=== PATIENT | male | born 1980 | race Caucasian/White ===

== ENCOUNTER 2018-07-21 12:32 | Inpatient (IN) | payer OTHER ==
[~2018-07-21] VITALS: Ht 175.3 cm; Wt 76.7 kg
[~2018-07-21 12:32] MED LIST: ceFAZolin 2GM PREMIX 2 GM/50 ML BAG IV ONE
--- NOTE | 2018-07-21 13:18 | RAD ---
HUMERUS RIGHT History: PT STATES HE WAS ARM WRESTLING AROUND 1030 THIS AM AND FELT A SNAP. PAIN AND SWELLING TO RT HUMERUS. No prior for comparison There is an oblique fracture of the distal shaft of the humerus. Fracture is mildly comminuted with small adjacent fragments. Very mild posterior and lateral displacement of the distal fragment and very mild posterolateral angulation. The elbow joint is not well profiled. IMPRESSION: Mildly displaced comminuted fracture of the distal humerus. Electronically signed by: Osmel Frank MD (07/21/2018 1:16 PM) [facility]
[2018-07-21] MEDS ORDERED: fentaNYL PF VIAL 100 MCG/2 ML VIAL IV ONE (13:30)
--- NOTE | 2018-07-21 14:09 | PHYS DOC ---
Past Medical History Past Medical History: No Pertinent History Past Surgical History: No Surgical History Alcohol Use: None Drug Use: None Adult General Chief Complaint Chief Complaint: ELBOW PROBLEM HPI HPI Patient is a 38 year old M who presents with R arm pain. He was arm wrestling, he currently resides in [facility] facility. He felt his arm snap. He denies other injury. Review of Systems Review of Systems Constitutional: Denies fever or chills Eyes: Denies change in visual acuity, redness, or eye pain HENT: Denies nasal congestion or sore throat Respiratory: Denies cough or shortness of breath Cardiovascular: Denies CP GI: Denies abdominal pain, nausea, vomiting, bloody stools or diarrhea : Denies dysuria or hematuria Musculoskeletal: Denies back pain or joint pain Integument: Denies rash or skin lesions Neurologic: Denies headache, focal weakness or sensory changes Endocrine: Denies polyuria or polydipsia All other systems were reviewed and found to be within normal limits, except as documented in this note. Current Medications Current Medications Current Medications Medications (Trade) Dose Ordered Sig/Nicole Start Time Stop Time Status Last Admin Dose Admin Fentanyl Citrate (Fentanyl 2ml Vial) 50 mcg 1X ONCE 07/21/18 13:30 07/21/18 13:31 DC Allergies Allergies Allergies Coded Allergies Type Severity Reaction Last Updated Verified No Known Drug Allergies 07/21/18 No Physical Exam Physical Exam Constitutional: Well developed, well nourished, no acute distress, non-toxic appearance. HENT: Normocephalic, atraumatic, bilateral external ears normal, oropharynx moist, no oral exudates, nose normal. Eyes: PERRLA, EOMI, conjunctiva normal, no discharge. Neck: Normal range of motion, no tenderness, supple, no stridor. Cardiovascular:Heart rate regular rhythm, no murmur Lungs & Thorax: Bilateral breath sounds clear to auscultation Abdomen: Bowel sounds normal, soft, no tenderness, no masses, no pulsatile masses. Skin: Warm, dry, no erythema, no rash. Back: No tenderness, no CVA tenderness. Extremities: R distal upper arm deformity, 2+ radial pulse, strength intact in wrist and hand, sensation intact Neurologic: Alert and oriented X 3, normal motor function, normal sensory function, no focal deficits noted. Psychologic: Affect normal, judgement normal, mood normal. Current Patient Data Vital Signs Vital Signs Date Time Temp Pulse Resp B/P (MAP) Pulse Ox O2 Delivery O2 Flow Rate FiO2 07/21/18 12:45 98.6 64 18 137/82 (100) 99 Room Air 98.6 EKG EKG [] Radiology/Procedures Radiology/Procedures [] Course & Med Decision Making Course & Med Decision Making Pertinent Labs and Imaging studies reviewed. (See chart for details) 38 y/o M with no pmh presents for right arm pain and deformity. Xray shows R distal humerus fx. Discussed with Dr. Snyder who will admit pt and repair in OR. Dragon Disclaimer Dragon Disclaimer This electronic medical record was generated, in whole or in part, using a voice recognition dictation system. Departure Departure Impression: Primary Impression: Humerus distal fracture Disposition: ADMITTED INPATIENT Admitting Physician: Other Condition: GOOD Referrals: UNKNOWN PCP NAME (PCP) SHERLYN FERGUSON MD Jul 21, 2018 14:08
--- NOTE | 2018-07-21 18:03 | NUR ---
Patient arrived to 4N at 1802. Prior to his arrival, woman called who said she was his . Said that someone from the ED had told her to call me. Per protocol of patient being confidential, I told her I do not have a patient here at this time, by that name. No orders, but Dr. Snyder on floor, ok for patient to have dinner. He will place orders later.
--- NOTE | 2018-07-21 18:52 | PDOC1 ---
History and Physical Date of Admission Date of Admission DATE: 07/21/18 TIME: 18:44 Identification/Chief Complaint Chief Complaint right arm fracture Source Source: Chart review, Patient History of Present Illness History of Present Illness 38 year old right handed man who sustained a right arm fracture while arm wrestling today at [facility]. He is due to be released in 10 days. He normally works doing framing and tera. Past Medical History Past Medical History denies Past Surgical History Past Surgical History none Family History Family History father . Denies significant family illnesses. Social History Smoke: No Current Problem List Problem List Problems Medical Problems: (1) Humerus distal fracture Status: Acute Current Medications Current Medications Current Medications Fentanyl Citrate (Fentanyl 2ml Vial) 50 mcg 1X ONCE IV Last administered on 07/21/18at 14:01; Start 07/21/18 at 13:30; Stop 07/21/18 at 13:31; Status DC Allergies Allergies: Coded Allergies: No Known Drug Allergies (Unverified , 07/21/18) ROS General: No: Chills, Night Sweats Eyes: No Decreased vision, No Double vision HEENT: No: Heacaches Hematological and Lymphatic: No: Bleeding Problems, Blood Clots Respiratory: No: Cough, Pleuritic Pain, Shortness of breath, SOB with excertion Cardiovascular: No Chest Pain Gastrointestinal: No Nausea, No Vomiting, No Diarrhea, No Constipation Genitourinary: No Dysuria, No Hematuria Musculoskeletal: Yes Pain In: (right arm only, radiated to just below elbow. Denies shoulder, wrist, hand pain or dysfunction) Neurological: No Behavorial Changes, No Bowel/Bladder ControlChng Physical Exam General: Alert, Cooperative HEENT: Atraumatic Heart: RRR Abdomen: Soft Extremities: No clubbing, No cyanosis, No edema, Normal pulses, Other (swelling and tenderness right distal humerus. Skin intact over fracture. Distal NVI.) Skin: No breakdown, No significant lesion Neuro: Normal tone, Sensation intact Vitals Vitals Vital Signs Date Time Temp Pulse Resp B/P (MAP) Pulse Ox O2 Delivery O2 Flow Rate FiO2 07/21/18 17:30 76 16 136/72 (93) 99 Room Air 07/21/18 12:45 98.6 98.6 Images Images displaced extra-articular distal humeral shaft fracture, almost metaphyseal. spiral fracture with displacement. Report reviewed, images independently reviewed. [facility] [address] [place] [address] IMAGING REPORT Signed PATIENT: MITCH MEYERS ACCOUNT: [id number] : 1980 LOCATION: ER AGE: 38 SEX: M EXAM STATUS: REG ER ORD. PHYSICIAN: SHERLYN FERGUSON MD REASON: arm wrestling, arm snapped, ?biceps tendonr upture vs fx PROCEDURE: HUMERUS RIGHT HUMERUS RIGHT History: PT STATES HE WAS ARM WRESTLING AROUND 1030 THIS AM AND FELT A SNAP. PAIN AND SWELLING TO RT HUMERUS. No prior for comparison There is an oblique fracture of the distal shaft of the humerus. Fracture is mildly comminuted with small adjacent fragments. Very mild posterior and lateral displacement of the distal fragment and very mild posterolateral angulation. The elbow joint is not well profiled. IMPRESSION: Mildly displaced comminuted fracture of the distal humerus. Electronically signed by: Osmel Frank MD (07/21/2018 1:16 PM) [facility] VTE Prophylaxis Ordered VTE Prophylaxis Devices: Yes VTE Pharmacological Prophylaxi: No Assessment/Plan Assessment/Plan Closed displaced distal humeral shaft nearly metaphyseal fracture in a laborer salvage. I discussed operative vs nonoperative treatment, but recommend surgery. We discussed potential risks such as bleeding, scarring, infection, nerve injury, malunion or nonunion, need for further surgery, need for hardware removal or other potential surgical or anesthetic complications.All of his questions about surgery were answered and he desires to proceed. PAULA KATZ MD Jul 21, 2018 18:52
[2018-07-21 19:00] VITALS: BP 125/72
[2018-07-21] MEDS ORDERED: MAGNESIUM HYDROXIDE 2,400 MG/30 ML ORAL.SUSP. PO PRN (19:30)
[2018-07-21] MEDS ORDERED: ZOLPIDEM 5 MG TABLET. PO PRN (19:30)
[2018-07-21] MEDS ORDERED: BISACODYL 10 MG SUPP.RECT. PR PRN (19:30)
[2018-07-21] MEDS ORDERED: DEXTROSE 50% 25 GM / 50ML DISP.SYRIN. IV PRN (19:30)
[2018-07-21] MEDS ORDERED: oxyCODONE IR 5 MG TABLET PO PRN ×2 (19:30)
[2018-07-21] MEDS ORDERED: 0.9 % SODIUM CHLORIDE 10 ML DISP.SYRIN. IV PRN (19:30)
[2018-07-21] MEDS ORDERED: ONDANSETRON PF 4 MG/2 ML VIAL. IV PRN (19:30)
[2018-07-21] MEDS: MORPHINE SULFATE 2 MG/ML VIAL. IV PRN (19:48)
[2018-07-21] MEDS: DOCUSATE SODIUM 100 MG CAPSULE. PO SCH (21:00)
[2018-07-21] MEDS: ACETAMINOPHEN 500 MG TABLET PO SCH (21:01)
[2018-07-21 21:27] LABS: BASO # 0.1 x10^3/uL (0.0-0.2); BASO % 1 % (0-3); EOS # 0.1 x10^3/uL (0.0-0.7); EOS % 1 % (0-3); HEMATOCRIT 45.1 % (39.0-53.0); HEMOGLOBIN 14.9 g/dL (13.0-17.5); LYMPH # 2.4 x10^3/uL (1.0-4.8); LYMPH % 21 % (24-48); MEAN CORPUSCULAR HEMOGLOBIN 30 pg (25-35); MEAN CORPUSCULAR HGB CONC 33 g/dL (31-37); MEAN CORPUSCULAR VOLUME 91 fL (79-100); MONO # 0.8 x10^3/uL (0.0-1.1); MONO % 7 % (0-9); NEUT # 7.8 x10^3uL (1.8-7.7); NEUT % 70 % (31-73); PLATELET COUNT 258 x10^3/uL (140-400); RED BLOOD COUNT 4.96 x10^6/uL (4.30-5.70); RED CELL DISTRIBUTION WIDTH 13.9 % (11.5-14.5); WHITE BLOOD COUNT 11.2 x10^3/uL (4.0-11.0)
[2018-07-21 21:38] LABS: CALCIUM 9.1 mg/dL (8.5-10.1); CREATININE 1.2 mg/dL (0.7-1.3); GFR 68.1; POTASSIUM 3.9 mmol/L (3.5-5.1)
[2018-07-21 23:00] VITALS: BP 156/60
[2018-07-22] VITALS (9 sets, daily range): BP systolic 107–127; BP diastolic 48–81
[2018-07-22] MEDS: MORPHINE SULFATE 2 MG/ML VIAL. IV PRN ×3 (01:43→07:32)
[2018-07-22] MEDS: fentaNYL PF VIAL 100 MCG/2 ML VIAL IV PRN ×7 (03:42→18:23)
[2018-07-22] MEDS: DOCUSATE SODIUM 100 MG CAPSULE. PO SCH ×2 (09:00→20:57)
[2018-07-22] MEDS: ACETAMINOPHEN 500 MG TABLET PO SCH ×3 (09:00→20:57)
[2018-07-22] MEDS ORDERED: IV RINGERS,LACTATED 1000ML 1,000 ML IV SCH (10:40)
[2018-07-22] MEDS ORDERED: fentaNYL PF VIAL 100 MCG/2 ML VIAL IV PRN ×2 (10:45→18:30)
[2018-07-22] MEDS ORDERED: ONDANSETRON PF 4 MG/2 ML VIAL. IV PRN ×2 (10:45→18:30)
[2018-07-22] MEDS ORDERED: MORPHINE SULFATE 2 MG/ML VIAL. IV PRN ×2 (10:45→18:30)
[2018-07-22] MEDS ORDERED: HYDROmorphone 2 MG/ML VIAL IV PRN (10:45)
[2018-07-22] MEDS ORDERED: LIDOCAINE 1% PF 2 ML VIAL. ID PRN (10:45)
[2018-07-22] MEDS ORDERED: PROCHLORPERAZINE 10 MG/2 ML VIAL. IV PRN (10:45)
[2018-07-22] MEDS ORDERED: ONDANSETRON PF 4 MG/2 ML VIAL. ONE ×2 (14:04→15:16)
[2018-07-22] MEDS ORDERED: PROPOFOL 20 ML IV ONE (14:04)
[2018-07-22] MEDS ORDERED: LIDOCAINE 2% PF 5 ML VIAL. ONE (14:04)
[2018-07-22] MEDS ORDERED: BUPIVACAINE-EPI 0.25%-1:200000 MPF 30 ML VIAL. ONE (14:33)
[2018-07-22] MEDS ORDERED: fentaNYL PF VIAL 100 MCG/2 ML VIAL ONE ×3 (15:16→18:09)
[2018-07-22] MEDS ORDERED: MIDAZOLAM HCL/PF 2 MG/2 ML VIAL. ONE (15:17)
[2018-07-22] MEDS ORDERED: GLYCOPYRROLATE 1 MG/5 ML VIAL. ONE (16:05)
[2018-07-22] MEDS ORDERED: KETOROLAC 30 MG/ML INJ FOR OR. INJ ONE (17:08)
--- NOTE | 2018-07-22 18:25 | PDOC4 ---
Operative Note Operative Note Date of Procedure: July 22, 2018 Pre-Op Diagnosis: Displaced spiral fracture of shaft of humerus, right arm, initial encounter for closed fracture S42.341A Post-Op Diagnosis: Same Procedure: Open treatment of humeral shaft fracture with plate/screws, CPT 11493 Surgeon: Paula Snyder MD Anesthesia: Tender Labor: RIANA Castaneda EBL: 200 mL Specimens Obtained: none Complications: none Drains: none Tourniquet time: 8 minutes Indications for Procedure: The patient is a 38-year-old right-handed man with a spiral fracture of the right distal humeral shaft which is displaced and unstable. The patient and I discussed the risks, benefits and alternatives of surgery. I recommended internal fixation. We discussed the potential risks of radial nerve injury, numbness, weakness, malunion or nonunion, need for further surgery, bleeding, scarring, infection, or other potential surgical or anesthetic complications. We discussed possible nonoperative treatment but I do recommend surgery for this fracture and he agrees. He stated understanding of the risks benefits and alternatives. A written consent was obtained. Procedure in Detail: The patient was identified in the preoperative holding are a. The correct right upper extremity was marked by me. The patient was taken to the operating room where general anesthesia was used. The patient was positioned supine on the operating table. Preoperative antibiotics were given intravenously. A timeout procedure was performed. The limb was prepared in sterile fashion with surgical prep solution. Sterile drapes were applied. A sterile tourniquet was applied. The lower part of the arm was covered with an impervious stockinette and Coban. The limb was exsanguinated with an Esmarch bandage, and the tourniquet inflated to 275 mmHg. The direct lateral approach to the humeral shaft was employed. Sharp dissection was used through the skin with a scalpel, and then careful Metzenbaum scissor dissection was performed, with care made not to injure the radial nerve or the posterior antebrachial cutaneous nerve. The intermuscular septum was located distally, and dissected proximally. The interval between the brachioradialis and the triceps was employed. A few minutes into the dissection I removed the tourniquet to extend far enough proximal to allow proximal fixation. The tourniquet was released. Electrocautery was used for hemostasis. Care again was made not to injure the radial nerve or the posterior antebrachial cutaneous nerve. The fracture was identified and was markedly displaced. Fracture hematoma was cleared with curettes, rongeurs, and irrigation. Careful subperiosteal dissection was used up the humerus until the radial nerve was located. This was carefully mobilized and protected throughout the case. The fracture was held reduced with a bone clamp. An interfragmentary lag screw was placed, with secure fixation. The reduction appeared anatomic. The small image intensifier was used to confirm the reduction. There is a small comminution fragment which is not fixated, but the 2 major portions of the fracture are well aligned. The image intensifier was used throughout the procedure, and all the images were interpreted intraoperatively by me. I then applied a Synthes posterolateral locking plate. A single screw was placed to secure the plate to the bone. The image intensifier was used to confirm that satisfactory length of the plate was achieved proximally, and that the plate position was satisfactory. Additional locking screws were placed distally. Nonlocking screws were placed proximally. Excellent rigid fixation was obtained. The bone cortices on this young man are some of the healthiest I have encountered. Drilling through 4-5 mm of each cortex took longer than usual, and screw fixation is excellent. Final images were taken with the small image intensifier. Satisfactory reduction and fixation was obtained. Copious irrigation was used. Outer gloves were changed. The fascia is repaired with 0 Vicryl [id number] sutures. My residential living assistant prepared the subcutaneous tissues with 2-0 Vicryl, and reapproximated the skin with elmer. Xeroform and a sterile dressing were applied. Needle and sponge counts were correct. There were no apparent complications. PAULA SNYDER MD Jul 22, 2018 18:25
[2018-07-22] MEDS ORDERED: POLYETHYLENE GLYCOL 3350 17 GM PACKET. PO PRN (18:30)
[2018-07-22] MEDS ORDERED: HYDROcodone/APAP 7.5/325MG 1 TAB TABLET PO PRN ×2 (18:30)
[2018-07-22] MEDS ORDERED: oxyCODONE/APAP 5/325 1 TAB TABLET PO PRN (18:30)
[2018-07-22] MEDS ORDERED: oxyCODONE IR 5 MG TABLET PO PRN (18:30)
[2018-07-22] MEDS ORDERED: DEXTROSE 50% 25 GM / 50ML DISP.SYRIN. IV PRN (18:30)
[2018-07-22] MEDS: IV 1/2 NORMAL SALINE 1,000 ML IV SCH (19:00)
--- NOTE | 2018-07-22 22:12 | NUR ---
Pt. is tolerating po meds well. Did not administer .45% NS. Will continue to monitor.
[2018-07-22] MEDS: oxyCODONE/APAP 5/325 1 TAB TABLET PO PRN (23:09)
[2018-07-22] MEDS: MORPHINE SULFATE 4 MG/ML VIAL. IV PRN (23:50)
[2018-07-23 03:00] VITALS: BP 105/56
[2018-07-23] MEDS: MORPHINE SULFATE 4 MG/ML VIAL. IV PRN ×3 (03:57→11:32)
[2018-07-23] MEDS ORDERED: MAGNESIUM HYDROXIDE 2,400 MG/30 ML ORAL.SUSP. PO PRN (06:00)
[2018-07-23 07:00] VITALS: BP 115/67
[2018-07-23] MEDS: IV 1/2 NORMAL SALINE 1,000 ML IV SCH (07:21)
[2018-07-23] MEDS: oxyCODONE/APAP 5/325 1 TAB TABLET PO PRN (08:17)
[2018-07-23] MEDS: ACETAMINOPHEN 500 MG TABLET PO SCH (08:18)
[2018-07-23] MEDS: DOCUSATE SODIUM 100 MG CAPSULE. PO SCH (08:18)
--- NOTE | 2018-07-23 08:53 | PDOC ---
PROGRESS NOTES Subjective Subjective feeling well. some hand numbness Objective Vital Signs Vital Signs Date Time Temp Pulse Resp B/P (MAP) Pulse Ox O2 Delivery O2 Flow Rate FiO2 07/23/18 08:17 16 Room Air 07/23/18 07:00 97.9 68 115/67 (83) 97 97.9 07/22/18 17:42 6 Physical Exam dressing dry. alignment normal. decreased sensation radial nerve distribution, and weakness 1/5 radial nerve function, likely stretch or swelling. nerve was manipulated intraoperatively and plate placed between nerve and bone. Median, ulnar function intact. Labs Laboratory Tests Test 07/21/18 21:10 White Blood Count 11.2 x10^3/uL (4.0-11.0) Red Blood Count 4.96 x10^6/uL (4.30-5.70) Hemoglobin 14.9 g/dL (13.0-17.5) Hematocrit 45.1 % (39.0-53.0) Mean Corpuscular Volume 91 fL (79-100) Mean Corpuscular Hemoglobin 30 pg (25-35) Mean Corpuscular Hemoglobin Concent 33 g/dL (31-37) Red Cell Distribution Width 13.9 % (11.5-14.5) Platelet Count 258 x10^3/uL (140-400) Neutrophils (%) (Auto) 70 % (31-73) Lymphocytes (%) (Auto) 21 % (24-48) Monocytes (%) (Auto) 7 % (0-9) Eosinophils (%) (Auto) 1 % (0-3) Basophils (%) (Auto) 1 % (0-3) Neutrophils # (Auto) 7.8 x10^3uL (1.8-7.7) Lymphocytes # (Auto) 2.4 x10^3/uL (1.0-4.8) Monocytes # (Auto) 0.8 x10^3/uL (0.0-1.1) Eosinophils # (Auto) 0.1 x10^3/uL (0.0-0.7) Basophils # (Auto) 0.1 x10^3/uL (0.0-0.2) Sodium Level 141 mmol/L (136-145) Potassium Level 3.9 mmol/L (3.5-5.1) Chloride Level 101 mmol/L (98-107) Carbon Dioxide Level 31 mmol/L (21-32) Anion Gap 9 (6-14) Blood Urea Nitrogen 13 mg/dL (8-26) Creatinine 1.2 mg/dL (0.7-1.3) Estimated GFR (Cockcroft-Gault) 68.1 Glucose Level 77 mg/dL (70-99) Calcium Level 9.1 mg/dL (8.5-10.1) 25-Hydroxy Vitamin D Total 16.4 ng/mL (30-100) Imaging postop x-rays satisfactory alignment, no official reading yet Assessment Assessment POD 1 ORIF humeral shaft. Radial nerve dysfunction at present is likely stretch neuropraxia and I expect it will resolve soon. Vitamin D very low, needs supplement. Discussed all above with patient. Plan Plan of Care "home" to [facility] today. Percocet for pain. Needs vitamin D supplement. PAULA KATZ MD Jul 23, 2018 08:53
[2018-07-23] MEDS ORDERED: OXYC1TAB15 PO (08:58)
[2018-07-23] MEDS ORDERED: CHOL5000 PO (08:58)
[2018-07-23] MEDS ORDERED: SENNOSIDES/DOCUSATE 8.6/50MG TABLET. PO SCH (09:00)
[2018-07-23] MEDS ORDERED: MULTIVITAMIN with MINERAL TABLET. PO SCH (09:00)
[2018-07-23] MEDS ORDERED: CHOLECALCIFEROL (VITAMIN D3) 5,000 UNIT CAPSULE PO SCH (09:00)
[2018-07-23] MEDS ORDERED: CHOLECALCIFEROL (VITAMIN D3) 1,000 UNIT TABLET PO SCH (09:00)
--- NOTE | 2018-07-23 10:09 | RAD ---
Examination: HUMERUS RIGHT History: post op Comparison/Correlation: 07/21/2018 two-view right humerus Findings: Frontal and lateral views of the right humerus were obtained by crosstable technique. Plate and screws are noted involving the distal right humerus. Associated screw involving the oblique distal humeral fracture site is evident separate from the plate. Few small comminuted fragments are identified at the distal humeral diametaphyseal level. Skin elmer are noted along the lateral aspect from the mid humeral level to the elbow. Impression: Operative reduction of oblique distal humeral fracture. Electronically signed by: Dale Hinton MD (07/23/2018 10:06 AM) [facility]
[2018-07-23 11:00] VITALS: BP 114/67
--- NOTE | 2018-07-23 12:22 | PDOC3 ---
Discharge Summary Visit Information Date of Admission: Jul 21, 2018 Date of Discharge: Jul 23, 2018 Final Diagnosis Problems Medical Problems: (1) Humerus distal fracture Status: Acute Brief Hospital Course Allergies Allergies Coded Allergies Type Severity Reaction Last Updated Verified No Known Drug Allergies 07/21/18 No Vital Signs Vital Signs Date Time Temp Pulse Resp B/P (MAP) Pulse Ox O2 Delivery O2 Flow Rate FiO2 07/23/18 12:06 16 Room Air 07/23/18 07:00 97.9 68 115/67 (83) 97 97.9 07/22/18 17:42 6 Lab Results Laboratory Tests Test 07/21/18 21:10 White Blood Count 11.2 x10^3/uL (4.0-11.0) Red Blood Count 4.96 x10^6/uL (4.30-5.70) Hemoglobin 14.9 g/dL (13.0-17.5) Hematocrit 45.1 % (39.0-53.0) Mean Corpuscular Volume 91 fL (79-100) Mean Corpuscular Hemoglobin 30 pg (25-35) Mean Corpuscular Hemoglobin Concent 33 g/dL (31-37) Red Cell Distribution Width 13.9 % (11.5-14.5) Platelet Count 258 x10^3/uL (140-400) Neutrophils (%) (Auto) 70 % (31-73) Lymphocytes (%) (Auto) 21 % (24-48) Monocytes (%) (Auto) 7 % (0-9) Eosinophils (%) (Auto) 1 % (0-3) Basophils (%) (Auto) 1 % (0-3) Neutrophils # (Auto) 7.8 x10^3uL (1.8-7.7) Lymphocytes # (Auto) 2.4 x10^3/uL (1.0-4.8) Monocytes # (Auto) 0.8 x10^3/uL (0.0-1.1) Eosinophils # (Auto) 0.1 x10^3/uL (0.0-0.7) Basophils # (Auto) 0.1 x10^3/uL (0.0-0.2) Sodium Level 141 mmol/L (136-145) Potassium Level 3.9 mmol/L (3.5-5.1) Chloride Level 101 mmol/L (98-107) Carbon Dioxide Level 31 mmol/L (21-32) Anion Gap 9 (6-14) Blood Urea Nitrogen 13 mg/dL (8-26) Creatinine 1.2 mg/dL (0.7-1.3) Estimated GFR (Cockcroft-Gault) 68.1 Glucose Level 77 mg/dL (70-99) Calcium Level 9.1 mg/dL (8.5-10.1) 25-Hydroxy Vitamin D Total 16.4 ng/mL (30-100) Brief Hospital Course 38 year old admitted with acute humeral shaft fracture displaced. Admitted, and had surgery the next day. The patient progressed and is stable for discharge. Discharge Information Condition at Discharge: Stable Follow Up: Weeks Disposition/Orders: D/C to Another Facility Scheduled Cholecalciferol (Vitamin D3) (Vitamin D3), 5,000 UNIT PO DAILY Scheduled PRN Oxycodone/Apap 5-325 (Percocet 5-325 Mg Tablet ), 1-2 TAB PO PRN Q4HRS PRN for PAIN Patient Instructions Patient Instructions Patient Instructions No lifting or pushing with right arm. Keep incision dry. Follow up 10-14 days. Take Vitamin D 5000 U daily PAULA KATZ MD Jul 23, 2018 12:22
--- NOTE | 2018-07-23 12:52 | NUR ---
Discharge instructions reviewed with patient as well as belongings, patient verbalized understanding. [facility] [phone] [phone] twice with no answer.
[2018-07-23] MEDS ORDERED: BISACODYL 10 MG SUPP.RECT. PR PRN (16:00)
== END 2018-07-23 13:42 | disposition home or self-care (01) | DRG 494 ==
LOC: EEVIPCON 12:32 → ER 12:32 → 4 NORTH 15:16 → OBSVTOIN 16:08
PROVIDERS: ADMIT Orthopaedic Surgery; ATTEND Orthopaedic Surgery
PROC: 0PSF04Z Reposition Right Humeral Shaft with Internal Fixation Device, Open Approach (ICD-10-PCS; principal; 2018-07-22 15:00)
DX: S42.341A Displaced spiral fracture of shaft of humerus, right arm, initial encounter for closed fracture (principal); X58.XXXA Exposure to other specified factors, initial encounter; Y93.72 Activity, wrestling; Y92.149 Unspecified place in prison as the place of occurrence of the external cause; Y99.8 Other external cause status
CPT/HCPCS: 36415; 73060; 80048; 82306; 85025; A7015; C1713; G0379; J0696; J0780; J1885; J2001; J2250; J2270; J2405; J2704; J3010; J3490; J7120; 99285-25